=== PATIENT | female | born 1960 | race African-American/Black ===

== ENCOUNTER 2019-04-22 22:31 | Emergency (ER) | payer OTHER ==
[2019-04-22 22:42] VITALS: RESP 18; TEMP 99.1
[2019-04-22] MEDS ORDERED: SODIUM CHLORIDE 0.9% 1,000 ML IV STA (23:28)
[2019-04-22] MEDS ORDERED: SODIUM CHLORIDE 0.9% 500 ML 500 ML IV STA (23:28)
[2019-04-22] MEDS ORDERED: KETOROLAC 30 MG/ML 1 ML VIAL IVP STA (23:28)
[2019-04-22] MEDS ORDERED: HYDROmorphone 0.5 MG/0.5 ML SYRINGE IVP STA (23:28)
[2019-04-22] MEDS ORDERED: ONDANSETRON 4 MG/2 ML VIAL IVP STA (23:28)
[2019-04-23] LABS: Basophils % (A) 0 %; Eosinophils # (A) 0.2 k/uL (0-0.7); Eosinophils % (A) 2 %; HCT 39.6 % (34.0-46.0); HGB 13.3 gm/dL (11.4-16.0); Lymphocytes # (A) 2.8 k/uL (1.0-4.8); Lymphocytes % (A) 32 %; MCH 34.6 pg (25.0-35.0); MCHC 33.7 g/dL (31.0-37.0); MCV 102.6 fL (80.0-100.0); Macrocytosis Slight; Mean Platelet Volume 7.4; Monocytes # (A) 0.4 k/uL (0-1.0); Monocytes % (A) 4 %; Neutrophils # (A) 5.2 k/uL (1.3-7.7); Neutrophils % (A) 59 %; Platelet Count 216 k/uL (150-450); RBC 3.86 m/uL (3.80-5.40); RDW 14.8 % (11.5-15.5); WBC 8.7 k/uL (3.8-10.6)
[2019-04-23 00:01] LABS: Appearance,Urine Clear (Clear); Bilirubin,Urine Negative (Negative); Blood,Urine Negative (Negative); Color,Urine Yellow; Glucose,Urine (UA) Negative (Negative); Ketones,Urine Negative (Negative); Leukocyte Esterase,Urine Small (Negative); Mucus,Urine Few /hpf; Nitrite,Urine Negative (Negative); PH, Urine 5.5 (5.0-8.0); Protein,Urine Negative (Negative); RBC,Urine 1 /hpf (0-5); Squamous Epithelial Cell,Urine 4 /hpf (0-4); WBC,Urine 4 /hpf (0-5)
[2019-04-23 00:10] LABS: ALT 22 U/L (9-52); AST 23 U/L (14-36); African American GFR (CKD) >90 (>60 ml/min/1.73 sqM); Albumin 3.9 g/dL (3.5-5.0); Alkaline Phosphatase 56 U/L (38-126); Amylase 68 U/L (30-110); Anion Gap 5 mmol/L; Blood Urea Nitrogen 15 mg/dL (7-17); Calcium 9.4 mg/dL (8.4-10.2); Carbon Dioxide 25 mmol/L (22-30); Chloride 110 mmol/L (98-107); Glucose 105 mg/dL (74-99); Lipase 265 U/L (23-300); Potassium 4.1 mmol/L (3.5-5.1); Sodium 140 mmol/L (137-145); Total Bilirubin 0.4 mg/dL (0.2-1.3); Total Protein 6.4 g/dL (6.3-8.2)
--- NOTE | 2019-04-23 00:13 | CT ---
EXAM: CT Abdomen and Pelvis Without Intravenous Contrast CLINICAL HISTORY: ITS.REASON CT Reason: abdominal pain TECHNIQUE: Axial computed tomography images of the abdomen and pelvis without intravenous contrast. This CT exam was performed using one or more of the following dose reduction techniques: automated exposure control, adjustment of the mA and/or kV according to patient size, and/or use of iterative reconstruction technique. COMPARISON: No relevant prior studies available. FINDINGS: Lung bases: Unremarkable. No mass. No consolidation. ABDOMEN: Liver: No suspicious mass. Gallbladder and bile ducts: No abnormal ductal dilation or stones. Pancreas: Unremarkable. No ductal dilation. Spleen: Unremarkable. No splenomegaly. Adrenals: Unremarkable. No mass. Kidneys and ureters: No obstructing stones. No hydronephrosis. Stomach and bowel: No obstruction. No mucosal thickening. PELVIS: Appendix: No findings to suggest acute appendicitis. Bladder: Unremarkable. No stones. Reproductive: Unremarkable as visualized. ABDOMEN and PELVIS: Intraperitoneal space: Unremarkable. No free air. No significant fluid collection. Bones/joints: No acute fracture. No dislocation. Soft tissues: Unremarkable. Vasculature: No abdominal aortic aneurysm. Lymph nodes: Unremarkable. No enlarged lymph nodes. IMPRESSION: No acute findings.
[2019-04-23] MEDS ORDERED: CYCLOBENZAPRINE 10MG STARTER 3 TAB BTL PO STA (00:31)
--- NOTE | 2019-04-23 00:33 | ED ---
Back Pain HPI - General Source: EMS Limitations: no limitations <Nataliya Cordova - Last Filed: 04/23/19 02:54> <Anjelica Ugalde - Last Filed: 04/23/19 03:42> - General Chief Complaint: Back Pain/Injury Stated Complaint: back pain Time Seen by Provider: 04/22/19 22:46 - History of Present Illness Initial Comments: 59-year-old female patient presents to the emergency department today for evaluation of right flank pain that started couple of hours ago. Patient states the pain is sharp in nature and worsens with movement and deep breathing. She denies any chest pain or shortness of breath. Denies any nausea or vomiting. Denies any constipation or diarrhea. She denies any hematuria, dysuria, urinary frequency or, urinary urgency. She states she does have chronic low back pain with degenerative disc disease. Patient denies any recent rash, fever, chills, abdominal pain, numbness, tingling, dizziness, weakness, headache, visual changes, or any other complaints. (Nataliya Cordova) - Related Data Previous Rx's Medication Instructions Recorded Cyclobenzaprine [Flexeril] 10 mg PO TID #15 tab 04/23/19 Ibuprofen [Motrin] 600 mg PO Q8HR PRN #30 tab 04/23/19 Allergies Allergy/AdvReac Type Severity Reaction Status Date / Time No Known Allergies Allergy Unverified 04/22/19 22:52 Review of Systems ROS Other: All systems not noted in ROS Statement are negative. <Nataliya Cordova - Last Filed: 04/23/19 02:54> ROS Other: All systems not noted in ROS Statement are negative. <Anjelica Ugalde - Last Filed: 04/23/19 03:42> ROS Statement: Those systems with pertinent positive or pertinent negative responses have been documented in the HPI. Past Medical History Past Medical History: No Reported History History of Any Multi-Drug Resistant Organisms: None Reported Additional Past Surgical History / Comment(s): right ankle surgery Past Psychological History: No Psychological Hx Reported Smoking Status: Current every day smoker Past Alcohol Use History: Daily Past Drug Use History: Marijuana <Nataliya Cordova - Last Filed: 04/23/19 02:54> General Exam Limitations: no limitations General appearance: alert, in no apparent distress, other (Physical well- developed, well-nourished adult female patient in no acute distress. Vital signs upon presentation areVital signs upon presentation are temperature 99.1F, pulse 86, respirations 18, blood pressure 121/92, pulse ox 95% on room air.) Eye exam: Present: normal appearance, PERRL, EOMI. Absent: scleral icterus, conjunctival injection, periorbital swelling ENT exam: Present: normal exam, normal oropharynx, mucous membranes moist Respiratory exam: Present: normal lung sounds bilaterally. Absent: respiratory distress, wheezes, rales, rhonchi, stridor Cardiovascular Exam: Present: regular rate, normal rhythm, normal heart sounds. Absent: systolic murmur, diastolic murmur, rubs, gallop, clicks GI/Abdominal exam: Present: soft, normal bowel sounds. Absent: distended, tenderness, guarding, rebound, rigid Neurological exam: Present: alert, oriented X3, CN II-XII intact Psychiatric exam: Present: normal affect, normal mood Skin exam: Present: warm, dry, intact, normal color. Absent: rash <Nataliya Cordova - Last Filed: 04/23/19 02:54> Course Vital Signs 04/22/19 04/22/19 04/22/19 22:37 22:39 23:00 Temperature 99.1 F Pulse Rate 86 Respiratory 18 Rate Blood Pressure 121/92 121/92 O2 Sat by Pulse 96 95 97 Oximetry 04/22/19 04/23/19 23:30 00:51 Temperature Pulse Rate 78 Respiratory 18 Rate Blood Pressure 116/73 118/79 O2 Sat by Pulse 96 98 Oximetry Medical Decision Making - Lab Data Result diagrams: 04/22/19 23:50 04/22/19 23:50 - Radiology Data Radiology results: report reviewed, image reviewed <Nataliya Cordova - Last Filed: 04/23/19 02:54> - Lab Data Result diagrams: 04/22/19 23:50 04/22/19 23:50 <Anjelica Ugalde - Last Filed: 04/23/19 03:42> - Medical Decision Making 59-year-old female patient presents to the emergency department today for evalu ation of right flank pain worsens with movement and deep breathing. Physical examination did reveal some right CVA tenderness. Labs reviewed and were unremarkable. Urinalysis shows no evidence of infection or blood. CT abdomen and pelvis without contrast was obtained, shows no evidence for kidney stone or other abnormalities. Upon reevaluation patient does report improvement of symptoms. She does have a history of chronic low back pain with degenerative disc disease. This is felt to possibly be musculoskeletal in nature. She'll be discharged home with muscle relaxers and anti-inflammatory medication. She is instructed to follow-up with her primary care physician for recheck in 1-2 days. Return parameters were discussed in detail. She verbalizes understanding and agrees with this plan. (Nataliya Cordova) I was available for consultation in the emergency department. The history and physical exam were done by the midlevel provider. I was consulted for this patient's care. I reviewed the case with the midlevel provider and based on their presentation of the patient, I agree with the assessment, medical decision making and plan of care as documented. Chart was dictated using [employer] dictation software. Attempts were made to correct any dictation errors however some typographical errors may persist. (Anjelica Ugalde) - Lab Data Lab Results 04/22/19 04/22/19 04/22/19 Range/Units 23:50 23:50 23:50 WBC 8.7 (3.8-10.6) k/uL RBC 3.86 (3.80-5.40) m/uL Hgb 13.3 (11.4-16.0) gm/dL Hct 39.6 (34.0-46.0) % MCV 102.6 H (80.0-100.0) fL MCH 34.6 (25.0-35.0) pg MCHC 33.7 (31.0-37.0) g/dL RDW 14.8 (11.5-15.5) % Plt Count 216 (150-450) k/uL Neutrophils % 59 % Lymphocytes % 32 % Monocytes % 4 % Eosinophils % 2 % Basophils % 0 % Neutrophils # 5.2 (1.3-7.7) k/uL Lymphocytes # 2.8 (1.0-4.8) k/uL Monocytes # 0.4 (0-1.0) k/uL Eosinophils # 0.2 (0-0.7) k/uL Basophils # 0.0 (0-0.2) k/uL Macrocytosis Slight Sodium 140 (137-145) mmol/L Potassium 4.1 (3.5-5.1) mmol/L Chloride 110 H (98-107) mmol/L Carbon Dioxide 25 (22-30) mmol/L Anion Gap 5 mmol/L BUN 15 (7-17) mg/dL Creatinine 0.79 (0.52-1.04) mg/dL Est GFR (CKD-EPI)AfAm >90 (>60 ml/min/1.73 sqM) Est GFR (CKD-EPI)NonAf 84 (>60 ml/min/1.73 sqM) Glucose 105 H (74-99) mg/dL Calcium 9.4 (8.4-10.2) mg/dL Total Bilirubin 0.4 (0.2-1.3) mg/dL AST 23 (14-36) U/L ALT 22 (9-52) U/L Alkaline Phosphatase 56 (38-126) U/L Total Protein 6.4 (6.3-8.2) g/dL Albumin 3.9 (3.5-5.0) g/dL Amylase 68 (30-110) U/L Lipase 265 (23-300) U/L Urine Color Yellow Urine Appearance Clear (Clear) Urine pH 5.5 (5.0-8.0) Ur Specific [place] 1.020 (1.001-1.035) Urine Protein Negative (Negative) Urine Glucose (UA) Negative (Negative) Urine Ketones Negative (Negative) Urine Blood Negative (Negative) Urine Nitrite Negative (Negative) Urine Bilirubin Negative (Negative) Urine Urobilinogen 2.0 (<2.0) mg/dL Ur Leukocyte Esterase Small H (Negative) Urine RBC 1 (0-5) /hpf Urine WBC 4 (0-5) /hpf Ur Squamous Epith Cells 4 (0-4) /hpf Urine Mucus Few H (None) /hpf - Radiology Data CT abdomen and pelvis without contrast was obtained. Report was reviewed in its entirety. Impression by Dr. Fountain shows no acute findings. (Nataliya Cordova) Disposition Is patient prescribed a controlled substance at d/c from ED?: No Time of Disposition: 00:33 <Nataliya Cordova - Last Filed: 04/23/19 02:54> <Anjelica Ugalde - Last Filed: 04/23/19 03:42> Clinical Impression: Right flank pain, Muscle spasm Disposition: HOME SELF-CARE Condition: Good Instructions (If sedation given, give patient instructions): Flank Pain (ED), Muscle Spasm (ED) Additional Instructions: Increase fluids. Take medications as directed. Follow-up with your primary care physician for recheck in 1-2 days. Return to the emergency department immediately for any new, worsening, or concerning symptoms. Prescriptions: Cyclobenzaprine [Flexeril] 10 mg PO TID #15 tab Ibuprofen [Motrin] 600 mg PO Q8HR PRN #30 tab PRN Reason: Pain Referrals: None,Stated [Primary Care Provider] - 1-2 days
[2019-04-23 00:52] VITALS: BP 118/79; PULSE 78
== END 2019-04-23 00:52 | disposition home or self-care (01) ==
LOC: EC 22:31
DX: R10.9 Unspecified abdominal pain (principal); M62.838 Other muscle spasm; G89.29 Other chronic pain; M54.5 Low back pain; F17.200 Nicotine dependence, unspecified, uncomplicated; Z87.39 Personal history of other diseases of the musculoskeletal system and connective tissue
CPT/HCPCS: 36415; 80053; 82150; 83690; 85025; 81001; 74176; 99284; 96374; 96375 ×2; 96361; J2405; J1885; J1170

== ENCOUNTER 2020-06-07 01:07 | Emergency (ER) | payer OTHER ==
[2020-06-07 01:28] VITALS: BP 108/80; PULSE 72; RESP 17; TEMP 97.1
[2020-06-07] MEDS ORDERED: AMOXIC-POT CLAV 875MG STARTER PACK 2 TAB BTL PO STA (01:33)
[2020-06-07] MEDS ORDERED: LIDOCAINE 1% INJ 10MG/ML (20 ML MDV) SQ STA (01:33)
[2020-06-07] MEDS ORDERED: DIPH,PERTUS(ACELL)TETVAC-LF 0.5 ML VIAL IM ONE (01:33)
[2020-06-07] MEDS ORDERED: LIDOCAINE/EPINEPHR/TETRACAINE 5 ML BOTTLE TOPICAL ONE (02:42)
[2020-06-07] MEDS ORDERED: HYDROcodone/APAP 5-325MG 1 EACH TAB PO STA (02:55)
--- NOTE | 2020-06-07 03:00 | ED ---
General Adult HPI <Rk Moore - Last Filed: 06/07/20 03:57> - General Source: patient, RN notes reviewed, old records reviewed Mode of arrival: ambulatory Limitations: no limitations <Joseph Marks - Last Filed: 06/08/20 02:48> - General Chief complaint: Animal Bite Stated complaint: Dog Bite Time Seen by Provider: 06/07/20 01:33 - History of Present Illness Initial comments: 60-year-old female patient presents to ED for evaluation of bite to face. Patient reports that she was with her friends dog which is a small Evelio Oleg Terrier and it bit her in the face one time. Patient has a laceration to her lip ears on a date of last tetanus. Denying any other acute complaints. (Joseph Marks) - Related Data Previous Rx's Medication Instructions Recorded Cyclobenzaprine [Flexeril] 10 mg PO TID #15 tab 04/23/19 Ibuprofen [Motrin] 600 mg PO Q8HR PRN #30 tab 04/23/19 Amoxicillin/Potassium Clav 1 tab PO Q12HR 7 Days #14 tab 06/07/20 [Augmentin 875-125 Tablet] Hydrocodone/Acetaminophen [[place] 1 each PO Q6HR PRN #12 tab 06/07/20 5-325] Allergies Allergy/AdvReac Type Severity Reaction Status Date / Time No Known Allergies Allergy Unverified 04/22/19 22:52 Review of Systems ROS Other: All systems not noted in ROS Statement are negative. <Rk Moore - Last Filed: 06/07/20 03:57> ROS Other: All systems not noted in ROS Statement are negative. <Joseph Marks - Last Filed: 06/08/20 02:48> ROS Statement: Those systems with pertinent positive or pertinent negative responses have been documented in the HPI. Past Medical History Past Medical History: No Reported History History of Any Multi-Drug Resistant Organisms: None Reported Additional Past Surgical History / Comment(s): right ankle surgery Past Psychological History: No Psychological Hx Reported Smoking Status: Current every day smoker Past Alcohol Use History: Daily Past Drug Use History: None Reported <Joseph Marks - Last Filed: 06/08/20 02:48> General Exam <Joseph Marks - Last Filed: 06/08/20 02:48> - General Exam Comments Initial Comments: Constitutional: NAD, AOX3, Pt has pleasant affect. HEENT: NC/AT, trachea midline, neck supple, External ears appear normal, without discharge. Mucous membranes moist. EOM intact. There is no scleral icterus. No pallor noted. Pulmonary: Unlabored respirations no respiratory distress. Neuro: CN II-XII grossly intact. No nuchal rigidity. No raccon eyes, no benson sign Derm: 3cm laceration to upper lip left side involving booker border. No through and through. Vigorously irrigated. (Joseph Marks) Course Vital Signs 06/07/20 06/07/20 01:23 04:04 Temperature 97.1 F L Pulse Rate 72 Respiratory 17 17 Rate Blood Pressure 108/80 O2 Sat by Pulse 99 Oximetry Procedures - Laceration Laceration #1 Consent Obtained: verbal consent Indication: laceration Site: lip Size (cm): 3 Description: linear, involves booker border Depth: simple, single layer Anesthetic Used: lidocaine 1% Anesthesia Technique: local infiltration Amount (mls): 1 Type of Sutures: nylon Size of Sutures: 6-0 Number of Sutures: 3 Technique: simple, interrupted Patient Tolerated Procedure: well, no complications <Rk Moore - Last Filed: 06/07/20 03:57> Medical Decision Making <Joseph Marks - Last Filed: 06/08/20 02:48> - Medical Decision Making 60-year-old female patient presents to ED for dog bite to face. Physical exam displayed lip laceration laceration. I irrigated the laceration. Patient became irritated and wished to see another provider. I signed the patient to Dr. Prabhakar at [phone] pending laceration repair. (Joseph Marks) Disposition Is patient prescribed a controlled substance at d/c from ED?: Yes <Rk Moore - Last Filed: 06/07/20 03:57> <Joseph Marks - Last Filed: 06/08/20 02:48> Clinical Impression: Dog bite, Lip laceration Disposition: HOME SELF-CARE Condition: Good Instructions (If sedation given, give patient instructions): Animal Bite (ED), Laceration (ED) Prescriptions: Amoxicillin/Potassium Clav [Augmentin 875-125 Tablet] 1 tab PO Q12HR 7 Days #14 tab Hydrocodone/Acetaminophen [[place] 5-325] 1 each PO Q6HR PRN #12 tab PRN Reason: Pain Referrals: None,Stated [Primary Care Provider] - 1-2 days
== END 2020-06-07 04:05 | disposition home or self-care (01) ==
LOC: EC 01:07
DX: S01.511A Laceration without foreign body of lip, initial encounter (principal); Z23 Encounter for immunization; F17.200 Nicotine dependence, unspecified, uncomplicated; W54.0XXA Bitten by dog, initial encounter
CPT/HCPCS: 12013; 90471; 90715; 99283

== ENCOUNTER 2021-09-27 13:10 | Emergency (ER) | payer OTHER ==
[2021-09-27 13:46] VITALS: RESP 18
[2021-09-27] MEDS ORDERED: KETOROLAC 30 MG/ML 1 ML VIAL IVP STA (15:33)
[2021-09-27] MEDS ORDERED: ALBUTEROL HFA INHALER INHALATION STA (15:33)
--- NOTE | 2021-09-27 15:41 | ED ---
General Adult HPI - General Chief complaint: Abdominal Pain Stated complaint: cervix pain Time Seen by Provider: 09/27/21 15:22 Source: patient, family, RN notes reviewed Mode of arrival: ambulatory Limitations: no limitations - History of Present Illness Initial comments: 61-year-old female presents to the emergency department for evaluation of worsening cough and pelvic pressure. Patient states she has had a "smoker's cough" for years, but states it worsened over the past few days; also complains of nasal drainage. Patient states with her increased cough she is experiencing pressure in her pelvis and feels something abnormal in her vagina. Patient states she is concerned that her "cervix is ruptured." Does complain of mild lower abdominal discomfort; states she took Motrin for pain this morning but it is wearing off. Patient denies any vaginal bleeding or discharge; no new sexual partners. Denies fever, chills, chest pain, abdominal pain, nausea, vomiting, hematuria, or dysuria. - Related Data Home Medications Medication Instructions Recorded Confirmed Elderberry Fruit and Flower [Black 1 cap PO DAILY 09/27/21 09/27/21 Elderberry 575 mg Cap] Fluticasone Nasal [place] [Flonase 2 spray EA NOSTRIL BID PRN 09/27/21 09/27/21 Nasal [place]] Ibuprofen [Motrin] 1,600 mg PO BID PRN 09/27/21 09/27/21 guaiFENesin [Mucinex] 600 mg PO BID PRN 09/27/21 09/27/21 Previous Rx's Medication Instructions Recorded Albuterol Sulfate [Proair Hfa] 1 - 2 puff INHALATION Q6HR PRN 30 09/27/21 Days #8.5 gm Allergies Allergy/AdvReac Type Severity Reaction Status Date / Time No Known Allergies Allergy Verified 09/27/21 16:49 Review of Systems ROS Statement: Those systems with pertinent positive or pertinent negative responses have been documented in the HPI. ROS Other: All systems not noted in ROS Statement are negative. Past Medical History Past Medical History: No Reported History History of Any Multi-Drug Resistant Organisms: None Reported Additional Past Surgical History / Comment(s): right ankle surgery Past Psychological History: No Psychological Hx Reported Smoking Status: Current every day smoker Past Alcohol Use History: Daily Past Drug Use History: None Reported General Exam Limitations: no limitations (This is a tearful female who presents to the emergency department in no acute distress. Initial temperature 98.3, pulse 82, respirations 18, blood pressure 108/67, pulse ox 95% on room air.) General appearance: alert, in no apparent distress ENT exam: Present: normal exam, normal oropharynx, mucous membranes moist, TM's normal bilaterally Neck exam: Present: normal inspection. Absent: tenderness, meningismus, lymphadenopathy Respiratory exam: Present: wheezes (Expiratory wheezing and laterally). Absent: respiratory distress, rales, rhonchi, stridor Cardiovascular Exam: Present: regular rate, normal rhythm, normal heart sounds. Absent: systolic murmur, diastolic murmur, rubs, gallop, clicks GI/Abdominal exam: Present: soft, normal bowel sounds. Absent: distended, tenderness, guarding, rebound, rigid Back exam: Present: normal inspection. Absent: CVA tenderness (R), CVA tenderness (L) Neurological exam: Present: alert, oriented X3, CN II-XII intact Psychiatric exam: Present: anxious (Patient is tearful and expresses uncertainty; able to be reassured.) Skin exam: Present: warm, dry, intact, normal color. Absent: rash Course Vital Signs 09/27/21 13:41 Temperature 98.3 F Pulse Rate 82 Respiratory 18 Rate Blood Pressure 108/67 O2 Sat by Pulse 95 Oximetry - Reevaluation(s) Reevaluation #1: 09/27/21 17:05 Speculum exam completed. External exam shows evidence of pelvic organ prolapse at the opening of the vagina. Speculum exam reveals no cervical erythema, lesions, or discharge. Patient does complain of mild suprapubic/pelvic discomfort/pressure with bimanual exam. 09/27/21 17:44 Patient received albuterol inhaler and is feeling better. Lungs cta; no wheezing. Medical Decision Making - Medical Decision Making 61-year-old female with no significant past medical history is evaluated for complaints of congested cough and wheezing. Upon exam, patient is afebrile with no increased work of breathing or shortness of breath. Patient is not tachypneic nor tachycardic. Scattered expiratory wheezing noted throughout the lung kline. Patient has an intermittent strong congested cough that causes pain in her chest. She is a smoker and has been advised to quit. Pulse ox fluctuates between 95% to 100%. Chest x-ray shows no acute process. Albuterol inhaler was given with improvement. Laboratory studies were reviewed, no leukocytosis. Troponin is negative. EKG shows normal sinus rhythm. Patient also complains of pelvic pressure. External exam shows obvious pelvic organ prolapse. Speculum exam shows no cervical erythema, lesions, or discharge. Urinalysis is unremarkable. Patient will be discharged home to follow up with gynecology regarding prolapse. Also instructed to follow up with primary care provider for assistance with smoking cessation and recheck. Return parameters were discussed in detail. Patient verbalizes understanding and agrees with this plan. This patient's care was discussed with my attending Dr. Bryan. - Lab Data Result diagrams: 09/27/21 16:13 09/27/21 16:13 Lab Results 09/27/21 09/27/21 09/27/21 Range/Units 16:13 16:13 16:13 WBC 7.2 (3.8-10.6) k/uL RBC 4.35 (3.80-5.40) m/uL Hgb 14.8 (11.4-16.0) gm/dL Hct 44.6 (34.0-46.0) % MCV 102.6 H (80.0-100.0) fL MCH 34.1 (25.0-35.0) pg MCHC 33.3 (31.0-37.0) g/dL RDW 13.0 (11.5-15.5) % Plt Count 251 (150-450) k/uL MPV 7.9 Neutrophils % 41 % Lymphocytes % 49 % Monocytes % 5 % Eosinophils % 3 % Basophils % 1 % Neutrophils # 3.0 (1.3-7.7) k/uL Lymphocytes # 3.6 (1.0-4.8) k/uL Monocytes # 0.4 (0-1.0) k/uL Eosinophils # 0.2 (0-0.7) k/uL Basophils # 0.0 (0-0.2) k/uL Macrocytosis Slight Sodium 137 (137-145) mmol/L Potassium 4.6 (3.5-5.1) mmol/L Chloride 106 (98-107) mmol/L Carbon Dioxide 26 (22-30) mmol/L Anion Gap 5 mmol/L BUN 17 (7-17) mg/dL Creatinine 0.56 (0.52-1.04) mg/dL Est GFR (CKD-EPI)AfAm >90 (>60 ml/min/1.73 sqM) Est GFR (CKD-EPI)NonAf >90 (>60 ml/min/1.73 sqM) Glucose 93 (74-99) mg/dL Calcium 9.6 (8.4-10.2) mg/dL Troponin I (0.000-0.034) ng/mL Urine Color Light Yellow Urine Appearance Clear (Clear) Urine pH 6.0 (5.0-8.0) Ur Specific [place] 1.015 (1.001-1.035) Urine Protein Negative (Negative) Urine Glucose (UA) Negative (Negative) Urine Ketones Negative (Negative) Urine Blood Negative (Negative) Urine Nitrite Negative (Negative) Urine Bilirubin Negative (Negative) Urine Urobilinogen <2.0 (<2.0) mg/dL Ur Leukocyte Esterase Trace H (Negative) Urine RBC <1 (0-5) /hpf Urine WBC 2 (0-5) /hpf Ur Squamous Epith Cells 1 (0-4) /hpf Urine Mucus Rare H (None) /hpf 09/27/21 Range/Units 16:13 WBC (3.8-10.6) k/uL RBC (3.80-5.40) m/uL Hgb (11.4-16.0) gm/dL Hct (34.0-46.0) % MCV (80.0-100.0) fL MCH (25.0-35.0) pg MCHC (31.0-37.0) g/dL RDW (11.5-15.5) % Plt Count (150-450) k/uL MPV Neutrophils % % Lymphocytes % % Monocytes % % Eosinophils % % Basophils % % Neutrophils # (1.3-7.7) k/uL Lymphocytes # (1.0-4.8) k/uL Monocytes # (0-1.0) k/uL Eosinophils # (0-0.7) k/uL Basophils # (0-0.2) k/uL Macrocytosis Sodium (137-145) mmol/L Potassium (3.5-5.1) mmol/L Chloride (98-107) mmol/L Carbon Dioxide (22-30) mmol/L Anion Gap mmol/L BUN (7-17) mg/dL Creatinine (0.52-1.04) mg/dL Est GFR (CKD-EPI)AfAm (>60 ml/min/1.73 sqM) Est GFR (CKD-EPI)NonAf (>60 ml/min/1.73 sqM) Glucose (74-99) mg/dL Calcium (8.4-10.2) mg/dL Troponin I <0.012 (0.000-0.034) ng/mL Urine Color Urine Appearance (Clear) Urine pH (5.0-8.0) Ur Specific [place] (1.001-1.035) Urine Protein (Negative) Urine Glucose (UA) (Negative) Urine Ketones (Negative) Urine Blood (Negative) Urine Nitrite (Negative) Urine Bilirubin (Negative) Urine Urobilinogen (<2.0) mg/dL Ur Leukocyte Esterase (Negative) Urine RBC (0-5) /hpf Urine WBC (0-5) /hpf Ur Squamous Epith Cells (0-4) /hpf Urine Mucus (None) /hpf - Radiology Data Radiology results: report reviewed, image reviewed Two-view chest x-ray was obtained. Report was reviewed in its entirety. Impression per Dr. Pace is normal chest. Normal heart. Disposition Clinical Impression: Prolapse of female pelvic organs, Bronchitis Disposition: HOME SELF-CARE Condition: Stable Instructions (If sedation given, give patient instructions): Acute Bronchitis (ED), Uterine Prolapse (ED), Wheezing (ED) Additional Instructions: Follow-up with gynecology for pelvic organ prolapse. Continue attempts to quit smoking. Follow-up with your primary care provider for recheck and assistance with smoking cessation. Use the albuterol up to 4 times a day as needed for wheezing. Return to the emergency department with any new, worsening, or concerning symptoms. Prescriptions: Albuterol Sulfate [Proair Hfa] 1 - 2 puff INHALATION Q6HR PRN 30 Days #8.5 gm PRN Reason: Wheezing Is patient prescribed a controlled substance at d/c from ED?: No Referrals: None,Stated [Primary Care Provider] - 1-2 days David Barber MD [STAFF PHYSICIAN] - 1-2 days Time of Disposition: 18:55
[2021-09-27 16:22] LABS: Appearance,Urine Clear (Clear); Bilirubin,Urine Negative (Negative); Blood,Urine Negative (Negative); Color,Urine Light Yellow; Glucose,Urine (UA) Negative (Negative); Ketones,Urine Negative (Negative); Leukocyte Esterase,Urine Trace (Negative); Mucus,Urine Rare /hpf; Nitrite,Urine Negative (Negative); Protein,Urine Negative (Negative); RBC,Urine <1 /hpf (0-5); Specific Gravity,Urine 1.015 (1.001-1.035); Squamous Epithelial Cell,Urine 1 /hpf (0-4); Urobilinogen,Urine <2.0 mg/dL (<2.0); WBC,Urine 2 /hpf (0-5)
--- NOTE | 2021-09-27 16:34 | XR ---
EXAMINATION TYPE: XR chest 2V DATE OF EXAM: 09/27/2021 COMPARISON: NONE HISTORY: Abdominal pain TECHNIQUE: 2 views FINDINGS: Heart is normal. Lungs are clear of infiltrate. There is some flattening of the diaphragm. There are no hilar masses. Bony thorax is intact. IMPRESSION: Normal chest. Normal heart.
[2021-09-27 16:41] LABS: Basophils % (A) 1 %; Eosinophils # (A) 0.2 k/uL (0-0.7); Eosinophils % (A) 3 %; HCT 44.6 % (34.0-46.0); HGB 14.8 gm/dL (11.4-16.0); Lymphocytes # (A) 3.6 k/uL (1.0-4.8); Lymphocytes % (A) 49 %; MCH 34.1 pg (25.0-35.0); MCHC 33.3 g/dL (31.0-37.0); MCV 102.6 fL (80.0-100.0); Macrocytosis Slight; Mean Platelet Volume 7.9; Monocytes # (A) 0.4 k/uL (0-1.0); Monocytes % (A) 5 %; Neutrophils % (A) 41 %; Platelet Count 251 k/uL (150-450); RBC 4.35 m/uL (3.80-5.40); WBC 7.2 k/uL (3.8-10.6)
[2021-09-27 16:49] LABS: African American GFR (CKD) >90 (>60 ml/min/1.73 sqM); Anion Gap 5 mmol/L; Blood Urea Nitrogen 17 mg/dL (7-17); Calcium 9.6 mg/dL (8.4-10.2); Carbon Dioxide 26 mmol/L (22-30); Chloride 106 mmol/L (98-107); Glucose 93 mg/dL (74-99); Non-African American GFR(CKD) >90 (>60 ml/min/1.73 sqM); Potassium 4.6 mmol/L (3.5-5.1); Sodium 137 mmol/L (137-145)
[2021-09-27 19:07] VITALS: BP 110/68; PULSE 80; TEMP 98.6
== END 2021-09-27 19:06 | disposition home or self-care (01) ==
LOC: EC 13:10
DX: J20.9 Acute bronchitis, unspecified (principal); N81.89 Other female genital prolapse; F17.200 Nicotine dependence, unspecified, uncomplicated
CPT/HCPCS: 99284; 96374; 36415; 94640; 93005; 80048; 84484; 85025; 81001; 71046; J1885

== ENCOUNTER 2022-02-16 10:02 | Emergency (ER) | payer OTHER ==
[2022-02-16 10:12] VITALS: RESP 18
--- NOTE | 2022-02-16 10:42 | ED ---
Fall HPI - General Chief Complaint: Fall Stated Complaint: Fall/Rib Pain Time Seen by Provider: 02/16/22 10:14 Source: patient, RN notes reviewed Mode of arrival: ambulatory Limitations: no limitations - History of Present Illness Initial Comments: This a 62-year-old female presents emergency Department with chief complaint of rib pain. She states that she slipped and fell a few days ago. Patient states that she fell on some steps complaint of left lower rib pain hurts with movement, deep inspiration at times. No shortness breath at rest. No abdominal pain no head or neck injury. She has no bowel bladder incontinence or retention - Related Data Home Medications Medication Instructions Recorded Confirmed Elderberry Fruit and Flower [Black 1 cap PO DAILY 09/27/21 09/27/21 Elderberry 575 mg Cap] Fluticasone Nasal [place] [Flonase 2 spray EA NOSTRIL BID PRN 09/27/21 09/27/21 Nasal [place]] Ibuprofen [Motrin] 1,600 mg PO BID PRN 09/27/21 09/27/21 guaiFENesin [Mucinex] 600 mg PO BID PRN 09/27/21 09/27/21 Previous Rx's Medication Instructions Recorded Albuterol Sulfate [Proair Hfa] 1 - 2 puff INHALATION Q6HR PRN 30 09/27/21 Days #8.5 gm Allergies Allergy/AdvReac Type Severity Reaction Status Date / Time No Known Allergies Allergy Verified 02/16/22 10:13 Review of Systems ROS Statement: Those systems with pertinent positive or pertinent negative responses have been documented in the HPI. ROS Other: All systems not noted in ROS Statement are negative. Past Medical History Past Medical History: No Reported History History of Any Multi-Drug Resistant Organisms: None Reported Past Surgical History: Orthopedic Surgery Additional Past Surgical History / Comment(s): right ankle surgery Past Psychological History: No Psychological Hx Reported Smoking Status: Current every day smoker Past Alcohol Use History: Daily Past Drug Use History: None Reported General Exam Limitations: no limitations General appearance: alert, in no apparent distress Head exam: Present: atraumatic, normocephalic, normal inspection Eye exam: Present: normal appearance, PERRL, EOMI. Absent: scleral icterus, conjunctival injection, periorbital swelling ENT exam: Present: normal exam, normal oropharynx, mucous membranes moist Neck exam: Present: normal inspection, full ROM. Absent: tenderness, meningismus, lymphadenopathy Respiratory exam: Present: normal lung sounds bilaterally, chest wall tenderness (Left lower quadrant). Absent: respiratory distress, wheezes, rales, rhonchi, stridor Cardiovascular Exam: Present: regular rate, normal rhythm, normal heart sounds. Absent: systolic murmur, diastolic murmur, rubs, gallop, clicks GI/Abdominal exam: Present: soft, normal bowel sounds. Absent: distended, tenderness, guarding, rebound, rigid Back exam: Absent: CVA tenderness (R), CVA tenderness (L) Neurological exam: Present: alert Skin exam: Present: warm, dry, intact, normal color. Absent: rash Course Vital Signs 02/16/22 10:09 Temperature 98.1 F Pulse Rate 88 Respiratory 18 Rate Blood Pressure 120/79 O2 Sat by Pulse 97 Oximetry Medical Decision Making - Medical Decision Making X-rays negative for acute rib fracture, pneumothorax. Patient has reproducible chest wall pain. Patient be discharged in stable condition return parameters were discussed. Disposition Clinical Impression: Fall, Contusion of rib on left side Disposition: HOME SELF-CARE Condition: Stable Instructions (If sedation given, give patient instructions): Rib Contusion (ED) Additional Instructions: Please return to the Emergency Department if symptoms worsen or any other concer ns. Is patient prescribed a controlled substance at d/c from ED?: No Referrals: None,Stated [REFERRING] - 1-2 days Time of Disposition: 12:05
--- NOTE | 2022-02-16 11:40 | XR ---
EXAMINATION TYPE: XR ribs LT w pa chest x-ray DATE OF EXAM: 02/16/2022 COMPARISON: X-ray dated 09/27/2021 INDICATION: Pain after fall TECHNIQUE: Chest PA and 2 views of the left ribs FINDINGS: Suspected COPD changes. Minimal right basal linear pulmonary atelectasis. Grossly unremarkable lungs otherwise. No sizable pleural effusion or definite pneumothorax. No gross cardiomegaly. Aortic atherosclerotic calcifications. No definite left rib fracture identifie d. IMPRESSION: No definite left rib fracture identified. Incidental findings as described above.
[2022-02-16] MEDS ORDERED: ACET/COD 300 MG/30 MG STARTER PACK 6 TAB BTL PO STA (12:08)
[2022-02-16 12:32] VITALS: BP 120/78; PULSE 87; TEMP 98.6
== END 2022-02-16 12:31 | disposition home or self-care (01) ==
LOC: EC 10:02
DX: S20.20XA Contusion of thorax, unspecified, initial encounter (principal); F17.200 Nicotine dependence, unspecified, uncomplicated; W10.9XXA Fall (on) (from) unspecified stairs and steps, initial encounter
CPT/HCPCS: 99284